=== PATIENT | female | born 2005 | race Hispanic/Latino ===

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

== ENCOUNTER 2023-03-11 18:31 | Emergency (ER) | payer OTHER ==
[~2023-03-11] VITALS: Ht 157.5 cm; Wt 83.0 kg
[2023-03-11 19:15] VITALS: BP 123/61; PULSE 80; RESP 16
[2023-03-11] MEDS ORDERED: PENICILLIN G BENZATHINE LA 1.2 MILUNITS/2 ML SYG IM ONE (20:30)
[2023-03-11] MEDS ORDERED: AMOX500C2 PO (20:44)
[2023-03-11] MEDS ORDERED: AMOXICILLIN 500 MG CAPSULE PO ONE (21:00)
== END 2023-03-11 21:00 | disposition home or self-care (01) ==
LOC: EDH 18:31
DX: J02.0 Streptococcal pharyngitis (principal)
CPT/HCPCS: 87880